=== PATIENT | male | born 1970 | race Caucasian/White ===

== ENCOUNTER 2021-07-03 17:29 | Emergency (ER) | payer MEDICARE, BC ==
[2021-07-03] MEDS ORDERED: Sodium Chloride 0.9% 1,000 ML IV SCH (18:15)
--- NOTE | 2021-07-03 18:19 | EDM.PDOC ---
ED HPI GENERAL MEDICAL PROBLEM - General Chief Complaint: Respiratory Problem Stated Complaint: SOB Time Seen by Provider: 07/03/21 17:42 Source of Information: Reports: Patient History Limitations: Reports: No Limitations - History of Present Illness INITIAL COMMENTS - FREE TEXT/NARRATIVE: Mr. Maxwell is a very pleasant 51-year-old gentleman who now presents to the ED stating that he flew from [place] to [place] this past 06/30/2021. At the [place] airport, he developed rhinorrhea and sneezing, which got worse, plus the addition of a headache, when he continued on to [place]. He states that he took some ibuprofen once in [place], then felt completely back to normal by Wednesday. He returned from [place] this morning, but states that he again developed sneezing, rhinorrhea, and a headache on his flight from [place] to [place]. He states that he also developed right-sided chest pain that radiated through to his right scapular area, which has been waxing and waning, although improved after he took some ibuprofen. He then developed significant chills when he was getting on his flight from [place] to [place], and states that he was very diaphoretic with rigors on the flight itself. When he landed in [place], he developed dyspnea, even at rest, but especially with exertion, along with a nonproductive cough. He states that it took him 20 minutes to get to his truck. He took some additional Advil, and his headache resolved, but he states that he still feels somewhat dyspneic, even here in the ED, lying on the gurney. The patient states that taking a deep breath marie his throat and induces a cough, although he denies chest pain with deep inspirations. No recent anosmia or ageusia. He denies having a recent fever, nausea, vomiting, constipation, diarrhea, urinary symptoms, or abdominal pain. Here in the ED, the patient is noted to be slightly tachycardic at 101 bpm, otherwise, he is hemodynamically stable, afebrile, saturating 95% on room air. He appears to be comfortable, in no acute distress. Prior to Wednesday, the patient denies having a recent fever, chills, sore throat, ear pain, nasal or sinus congestion, cough, dyspnea, chest pain, palpitations, nausea, vomiting, constipation, diarrhea, abdominal pain, urinary symptoms, recent weight gain or weight loss, recent bloody bowel movements or black bowel movements, recent joint aches, headaches, or rashes. The patient does not have a PCP. He has not received a COVID vaccination, nor an influenza vaccination. He also reports that he does not wear a mask, except when he is on an airplane. - Related Data Allergies Allergy/AdvReac Type Severity Reaction Status Date / Time Tetanus Vaccines and Toxoid Allergy Cannot Verified 07/03/21 17:46 Remember Home Meds: Home Meds . [No Known Home Meds] 07/03/21 [History] Past Medical History - Past Surgical History HEENT Surgical History: Reports: Oral Surgery (dental extractions) Musculoskeletal Surgical History: Reports: ORIF (Left forearm), Other (See Below) (Right knee repair x 4. Right hip repair.) Social & Family History - Tobacco Use Tobacco Use Status *Q: Never Tobacco User Tobacco Use Within Last Twelve Months: Smokeless Tobacco (Chews up to 3 cans/day) Second Hand Smoke Exposure: No - Alcohol Use Alcohol Use History: Yes Alcohol Use Frequency: Rarely - Recreational Drug Use Recreational Drug Use: No - Living Situation & Occupation Living situation: Reports: , Alone (in his truck) Occupation: Employed ([employer] ED ROS GENERAL - Review of Systems Review Of Systems: Comprehensive ROS is negative, except as noted in HPI. ED EXAM, GENERAL - Physical Exam Exam: See Below Exam Limited By: No Limitations General Appearance: Alert, WD/WN, No Apparent Distress Eye Exam: Bilateral Eye: EOMI, Normal Inspection Ears: Normal External Exam, Hearing Grossly Normal Nose: Normal Inspection Throat/Mouth: Normal Inspection, Normal Lips, Normal Voice, No Airway Compromise Head: Atraumatic, Normocephalic Neck: Normal Inspection, Full Range of Motion Respiratory/Chest: No Respiratory Distress, Lungs Clear, Normal Breath Sounds, No Accessory Muscle Use. No: Decreased Breath Sounds, Crackles, Rhonchi, Wheezing, Stridor, Prolonged Expiration Cardiovascular: Normal Peripheral Pulses, Regular Rate, Rhythm, No Edema, No Gallop, No JVD, No Murmur, No Rub Peripheral Pulses: 3+: Radial (L), Radial (R) GI/Abdominal: Normal Bowel Sounds, Soft, Non-Tender, No Organomegaly, No Distention, No Abnormal Bruit, No Mass Back Exam: Normal Inspection, Full Range of Motion, NT Extremities: Normal Inspection, Normal Range of Motion, No Pedal Edema, Normal Capillary Refill Neurological: Alert, Oriented, Normal Cognition, No Motor/Sensory Deficits Psychiatric: Normal Affect Skin Exam: Warm, Dry, Intact, Normal Color, No Rash #1 Interpretation EKG Date: 07/03/21 Time: 18:29 Rhythm: NSR Rate (Beats/Min): 99 Likely: Normal (Borderline LAD) P-Wave: Present QRS: Other (Late transition) ST-T: Normal QT: Normal Comparison: NA - No Prior EKG Course - Vital Signs Last Recorded V/S: Last Vital Signs Temp 37.5 C 07/03/21 17:42 Pulse 101 H 07/03/21 17:42 Resp 18 07/03/21 17:42 BP 120/85 07/03/21 17:42 Pulse Ox 95 07/03/21 17:42 - Orders/Labs/Meds Orders: Active Orders 24 hr Category Date Time Status Chest 1V Frontal [CR] Stat Exams 07/03/21 18:09 Taken BLOOD CULTURE [MREF] Stat Lab 07/03/21 18:25 Received BLOOD CULTURE [MREF] Stat Lab 07/03/21 18:31 Received Sodium Chloride 0.9% [Normal Saline] 1,000 ml Med 07/03/21 18:15 Active IV ASDIRECTED Blood Culture x2 Reflex Set [OM.PC] Stat Oth 07/03/21 18:11 Ordered Medication Orders Sodium Chloride (Normal Saline) 1,000 mls @ 100 mls/hr IV ASDIRECTED [facility] Last Admin: 07/03/21 18:27 Dose: 100 mls/hr Documented by: [facility] Labs: Laboratory Tests 07/03/21 07/03/21 07/03/21 Range/Units 17:45 18:25 18:25 WBC 5.32 (4.23-9.07) K/mm3 RBC 4.79 (4.63-6.08) M/mm3 Hgb 14.1 (13.7-17.5) gm/dl Hct 41.7 (40.1-51.0) % MCV 87.1 (79.0-92.2) fl MCH 29.4 (25.7-32.2) pg MCHC 33.8 (32.2-35.5) g/dl RDW Std Deviation 40.5 (35.1-43.9) fL Plt Count 197 D (163-337) K/mm3 MPV 9.0 L (9.4-12.3) fl Neutrophils % (Manual) 78 H (40-60) % Band Neutrophils % 1 (0-10) % Lymphocytes % (Manual) 18 L (20-40) % Atypical Lymphs % 0 % Monocytes % (Manual) 3 (2-10) % Eosinophils % (Manual) 0 L (0.8-7.0) % Basophils % (Manual) 0 L (0.2-1.2) Platelet Estimate Adequate RBC Morph Comment Normal D-Dimer, Quantitative (0.19-0.50) mg/L Sodium 140 (136-145) mEq/L Potassium 3.9 (3.5-5.1) mEq/L Chloride 104 (98-107) mEq/L Carbon Dioxide 26 (21-32) mEq/L Anion Gap 13.9 (5-15) BUN 21 H (7-18) mg/dL Creatinine 1.0 (0.7-1.3) mg/dL Est Cr Clr Drug Dosing 89.22 mL/min Estimated GFR (MDRD) > 60 (>60) mL/min BUN/Creatinine Ratio 21.0 H (14-18) Glucose 108 H (70-99) mg/dL Calcium 8.5 (8.5-10.1) mg/dL Magnesium 1.9 (1.8-2.4) mg/dL Total Bilirubin 0.4 (0.2-1.0) mg/dL AST 23 (15-37) U/L ALT 17 (16-63) U/L Alkaline Phosphatase 72 (46-116) U/L Troponin I < 0.017 (0.00-0.056) ng/mL C-Reactive Protein 4.8 H* (<1.0) mg/dL Total Protein 7.3 (6.4-8.2) g/dl Albumin 3.3 L (3.4-5.0) g/dl Globulin 4.0 gm/dL Albumin/Globulin Ratio 0.8 L (1-2) Influenza Type A RNA Negative (NEGATIVE) Influenza Type B RNA Negative (NEGATIVE) SARS-CoV-2 RNA (RAMEZ) Positive H (NEGATIVE) 11/18/21 Range/Units 18:25 WBC (4.23-9.07) K/mm3 RBC (4.63-6.08) M/mm3 Hgb (13.7-17.5) gm/dl Hct (40.1-51.0) % MCV (79.0-92.2) fl MCH (25.7-32.2) pg MCHC (32.2-35.5) g/dl RDW Std Deviation (35.1-43.9) fL Plt Count (163-337) K/mm3 MPV (9.4-12.3) fl Neutrophils % (Manual) (40-60) % Band Neutrophils % (0-10) % Lymphocytes % (Manual) (20-40) % Atypical Lymphs % % Monocytes % (Manual) (2-10) % Eosinophils % (Manual) (0.8-7.0) % Basophils % (Manual) (0.2-1.2) Platelet Estimate RBC Morph Comment D-Dimer, Quantitative 0.22 (0.19-0.50) mg/L Sodium (136-145) mEq/L Potassium (3.5-5.1) mEq/L Chloride (98-107) mEq/L Carbon Dioxide (21-32) mEq/L Anion Gap (5-15) BUN (7-18) mg/dL Creatinine (0.7-1.3) mg/dL Est Cr Clr Drug Dosing mL/min Estimated GFR (MDRD) (>60) mL/min BUN/Creatinine Ratio (14-18) Glucose (70-99) mg/dL Calcium (8.5-10.1) mg/dL Magnesium (1.8-2.4) mg/dL Total Bilirubin (0.2-1.0) mg/dL AST (15-37) U/L ALT (16-63) U/L Alkaline Phosphatase (46-116) U/L Troponin I (0.00-0.056) ng/mL C-Reactive Protein (<1.0) mg/dL Total Protein (6.4-8.2) g/dl Albumin (3.4-5.0) g/dl Globulin gm/dL Albumin/Globulin Ratio (1-2) Influenza Type A RNA (NEGATIVE) Influenza Type B RNA (NEGATIVE) SARS-CoV-2 RNA (RAMEZ) (NEGATIVE) Meds: Medications Generic Name Dose Route Start Last Admin Trade Name Harry PRN Reason Stop Dose Admin Sodium Chloride 1,000 mls @ 100 mls/hr 07/03/21 18:15 07/03/21 18:27 Normal Saline IV 100 mls/hr ASDIRECTED [facility] Administration - Re-Assessments/Exams Free Text/Narrative Re-Assessment/Exam: 07/03/21 18:11 A swab for the SARS-CoV-2 virus and influenza A + B viruses was collected at triage. I have added several blood tests, 2 sets of blood cultures, a portable chest x-ray, and an ECG. In the meantime, the patient will receive IV fluid. 07/03/21 20:05 Portable chest radiograph reviewed. Less than optimal inspiratory effort. The cardiac silhouette is within normal limits. No pulmonary vascular congestion. No pleural effusions seen on this AP view. There are bilateral hazy infiltrates, consistent with COVID pneumonia. No pneumothorax. Formal read per the Radiologist pending. The patient's CBC is unremarkable. His CMP is remarkable for a BUN slightly elevated 21, with a Cr normal at 1.0, and a slight hyperglycemia of 108, with the remainder of his CMP being unremarkable. His magnesium level is within normal limits at 1.9. His CRP is elevated at 4.8. His troponin is undetectably low. His D-dimer is within normal limits at 0.22. His swab for the SARS-CoV-2 virus is positive. His swab for influenza A + B viruses is negative. 07/03/21 20:34 Test results discussed with the patient. Based on the patient's elevated CRP, I felt that the patient would be a good candidate for an infusion of the monoclonal antibody Regen-Cov. We discussed that at length, including that it is an emergency use authorization medication intended to decrease the likelihood of patients diagnosed with COVID-19 from developing severe symptoms or , and that it does not treat current symptoms. I explained that Regen-Cov is still under investigation, that it is not fully FDA approved, and that the potential benefits and risks of the medication are not fully known. The patient was notified that if he receives Regen-Cov, that it may decrease his immune response to a COVID vaccination, should he decide to get it after he recovers from his current illness. I explained that there is a possibility that he could have an allergic reaction either during or after the infusion, as well as brief pain, bleeding, bruising of the skin, soreness, swelling, and possible infection at the infusion site. Other side effects could occur. I discussed that there are other potential treatment options that are currently not FDA approved to treat COVID-19. The patient was notified that the infusion takes about half an hour, after which he would be expected to remain in the ED for another hour to observe for possible side effects. He was offered the "Patient and caregiver SILVANO Regen-Cov fact sheet" to read and review. All questions were answered. The patient expressed understanding, but decided against receiving the infusion. I will discharge the patient home. I recommended that he stay adequately hydrated and take elpi-lqv-[id number] ibuprofen as needed for discomfort, but try not to treat a fever, if not necessary. I suggested that he purchase an [id number] finger pulse oximeter, and check his oxygen saturation several times a day. If his oxygen saturation drops down to 90%, consistently, I would like him to return to the ED for reevaluation. The patient was advised that he needs to strictly isolate until 07/13/2021, at which time he should get retested for the virus. He was advised that if he is a still positive, he will need to continue to isolate until he tests negative. The patient expressed understanding. Departure - Departure Time of Disposition: 20:36 Disposition: Home, Self-Care 01 Condition: Good Clinical Impression: COVID-19 - Discharge Information *PRESCRIPTION DRUG MONITORING PROGRAM REVIEWED*: Not Applicable *COPY OF PRESCRIPTION DRUG MONITORING REPORT IN PATIENT RADHA: Not Applicable Referrals: PCP,None [Primary Care Provider] - Forms: ED Department Discharge Additional Instructions: You were seen in the emergency room after developing a runny nose with sneezing, headache, right-sided chest pain, chills, sweats, and shortness of breath. Work-up in the ER included numerous blood tests, 2 sets of blood cultures, a swab for the SARS-CoV-2 virus and influenza A + B viruses, a chest x-ray, and an ECG. Your swab for the SARS-CoV-2 virus returned positive, meaning that you have COVID-19. Your chest x-ray showed COVID pneumonia. Your CRP, a measure of inflammation, returned moderately elevated at 4.8. Because of this, treatment with an infusion of monoclonal antibodies was offered, but declined. Going forward, we recommend that you stay adequately hydrated. Take [id number]-[id number] ibuprofen as needed for discomfort, however, try to avoid taking ibuprofen for fever. It is imperative that you strictly isolate until you test negative. On average, that takes 10 days, however, you may not be average. We recommend that you get retested on or about 07/14/2021. If you test positive, you will need to continue to isolate until you test negative. We suggest that you purchase an [id number]-[id number] finger pulse oximeter, and check your oxygen saturation several times a day. If your oxygen saturation drops down to 90%, consistently, please return to the ER for reevaluation. Sepsis Event Note (ED) - Evaluation Sepsis Screening Result: No Definite Risk - Focused Exam Vital Signs: Vital Signs Temp Pulse Resp BP Pulse Ox 07/03/21 17:42 37.5 C 101 H 18 120/85 95 - My Orders Last 24 Hours: My Active Orders 07/03/21 18:09 Chest 1V Frontal [CR] Stat 07/03/21 18:11 Blood Culture x2 Reflex Set [OM.PC] Stat 07/03/21 18:15 Sodium Chloride 0.9% [Normal Saline] 1,000 ml IV ASDIRECTED 07/03/21 18:25 BLOOD CULTURE [MREF] Stat 07/03/21 18:31 BLOOD CULTURE [MREF] Stat - Assessment/Plan Last 24 Hours: My Active Orders 07/03/21 18:09 Chest 1V Frontal [CR] Stat 07/03/21 18:11 Blood Culture x2 Reflex Set [OM.PC] Stat 07/03/21 18:15 Sodium Chloride 0.9% [Normal Saline] 1,000 ml IV ASDIRECTED 07/03/21 18:25 BLOOD CULTURE [MREF] Stat 07/03/21 18:31 BLOOD CULTURE [MREF] Stat
[2021-07-03 19:54] LABS: CORONAVIRUS COVID-19 NAA POSITIVE (NEGATIVE)
--- NOTE | 2021-07-04 05:55 | CR ---
Chest: Portable view of the chest was obtained. Comparison: No prior chest imaging is available. Patchy increased density is seen on both sides of the chest. Heart size and mediastinum are normal. Bony structures show nothing acute. Impression: 1. Patchy increased density on both sides of the chest suspicious for COVID pneumonia. Please correlate. Diagnostic code #3
== END 2021-07-03 20:58 | disposition home or self-care (01) ==
LOC: JD.ED 17:29
DX: U07.1 COVID-19 (principal); Z88.7 Allergy status to serum and vaccine
CPT/HCPCS: 0240U; 36415; 71045; 80053; 83735; 84484; 85007; 85027; 85379; 86140; 87040; 93005; 99285; J7030